=== PATIENT | male | born 1940 | race Caucasian/White ===

== ENCOUNTER 2017-01-15 04:34 | Emergency (ER) | payer MEDICARE, BC ==
[2017-01-15] MEDS ORDERED: NITRO-BID 2% UD PACKETS TOP ONE (04:41)
[2017-01-15] MEDS ORDERED: BABY ASPIRIN 81 MG CHEW PO ONE (04:41)
[2017-01-15] MEDS ORDERED: BUMEX 1 MG IV ONE (04:42)
[2017-01-15] MEDS ORDERED: BABY ASPIRIN 81 MG CHEW ONE (04:52)
[2017-01-15] MEDS ORDERED: BUMEX 1 MG ONE (04:52)
[2017-01-15] MEDS ORDERED: NITRO-BID 2% UD PACKETS ONE (04:52)
--- NOTE | 2017-01-15 05:03 | ERPHSYRPT ---
- History of Present Illness Time Seen by Provider: 01/15/17 04:40 Historian: patient, family (son) Patient Subjective Stated Complaint: PT REPORTS SOB ET CHEST PAIN BEGINNING AT MIDNIGHT-DENIES DIAPHORESIS-STATES THAT HE IS USUALLY SOB BUT IT BECAME WORSE Triage Nursing Assessment: PT FLUSHED WARM ET [id number] ALL QUESTIONS CORRECTLY-LUNGS CLEAR BILATERALLY-PULSE REGULAR IN LEFT RADIAL ARM Physician History: CC: chest pain and short of breath Hx: 76 y/o patient of Dr Keller/Henrique/Tres. He has dialysis , , Sunday. He had rought run and was weak and had to go to [facility] ER. Labs ok so sent home. He awoke tonite at [place] with anterior chest pain and shortness of breath. It persists. No NTG use. He takes ASA. He had prior CABG but has had no chest pain since. No cough or fever. Timing/Duration: today ([place]) Aspirin Treatment Today: 81 mg x 2, provided by ED Allergies/Adverse Reactions: tetracycline Allergy (Severe, Verified 01/15/17 04:45) Hives Influenza Virus Vaccines Allergy (Verified 01/15/17 04:45) Shortness of Breath Home Medications: Aspirin 81 mg PO DAILY 08/21/15 [History] Doxazosin Mesylate [Cardura] 6 mg PO DAILY 08/21/15 [History] Famotidine 20 mg [Pepcid 20 MG] 20 mg PO DAILY 08/21/15 [History] Insulin NPH Human Isophane [Humulin N] 25 unit SQ QAM 08/21/15 [History] Insulin NPH Human Isophane [Humulin N] 30 unit SQ HS 08/21/15 [History] Levothyroxine Sodium 100 Mcg [Synthroid 100 Mcg] 120 mcg PO DAILY 08/21/15 [History] Albuterol Common Canister [Proventil Common Canister] 1 puff IH UD [History] Allopurinol 100 mg [Zyloprim 100 mg] 100 mg PO DAILY 01/15/17 [History] Amlodipine Besylate 10 mg [Norvasc 10 MG] 10 mg PO DAILY 01/15/17 [History] Bumetanide [Bumex] 2 mg PO BID 01/15/17 [History] Cyanocobalamin (Vitamin B-12) [B-12] 1,000 mcg PO DAILY 01/15/17 [History] Gabapentin [Neurontin] 300 mg PO UD 01/15/17 [History] Glimepiride 4 mg [Amaryl 4 mg] 4 mg PO BID 01/15/17 [History] Hx Tetanus, Diphtheria Vaccination/Date Given: No Hx Influenza Vaccination/Date Given: No Hx Pneumococcal Vaccination/Date Given: No Immunizations Up to Date: Yes - Review of Systems Constitutional: Malaise, Weakness, No Fever, No Chills Eyes: No Symptoms Ears, Nose, & Throat: No Symptoms Respiratory: Dyspnea, No Cough Cardiac: Chest Pain Abdominal/Gastrointestinal: No Abdominal Pain, No Nausea, No Vomiting Genitourinary Symptoms: No Symptoms Skin: No Rash Neurological: No Headache All Other Systems: Reviewed and Negative - Past Medical History Pertinent Past Medical History: Yes Neurological History: No Pertinent History ENT History: No Pertinent History Cardiac History: Arrhythmia, Congestive Heart Failure, Coronary Artery Disease, Hypertension, Myocardial Infarction (NV), Peripheral Vascular Disease Respiratory History: CHF Endocrine Medical History: Diabetes Type II GI Medical History: GERD History: Renal Disease Male Reproductive Disorders: Prostate Problems Other Medical History: GOUT - Past Surgical History Past Surgical History: Yes Neuro Surgical History: No Pertinent History Cardiac: CABG Respiratory: No Pertinent History Gastrointestinal: Cholecystectomy Genitourinary: No Pertinent History Musculoskeletal: No Pertinent History Male Surgical History: No Pertinent History - Social History Smoking Status: Never smoker Exposure to second hand smoke: No Drug Use: none Patient Lives Alone: No - Nursing Vital Signs Nursing Vital Signs: Initial Vital Signs Temperature 98.8 F 01/15/17 04:35 Pulse Rate 58 L 01/15/17 04:35 Respiratory Rate 18 01/15/17 04:35 Blood Pressure 131/62 01/15/17 04:35 O2 Sat by Pulse Oximetry 98 01/15/17 04:35 Pain Scale Pain Intensity 6 - Physical Exam General Appearance: alert Eye Exam: PERRL/EOMI Ears, Nose, Throat Exam: moist mucous membranes Neck Exam: normal inspection, non-tender, supple Respiratory Exam: crackles/rales (both bases worse on right) Cardiovascular Exam: regular rate/rhythm, bradycardia (which he report is normal ) Gastrointestinal/Abdomen Exam: soft, No tenderness, No distention Extremity Exam: pedal edema (3+ edema with some redness and venous stasis) Neurologic Exam: alert, oriented x 3, cooperative, sensation nml, No motor deficits Skin Exam: warm, dry SpO2 Interpretation: normal SpO2: 98 Oxygen Delivery: Room Air - Course Nursing assessment & vital signs reviewed: Yes EKG Interpreted by Me: RATE (49), A-fib, Right Bundle Branch Block (new), Other (QTc 434) - Radiology Exams cxr X-ray Interpretation: Reviewed by me (CM, post sternotomy, mild failure) Ordered Tests: Active Orders 24 hr Category Date Time Status Power Tool Repair Technician STAT Care 01/15/17 04:41 Active EKG-ER Only STAT Care 01/15/17 04:41 Active IV Insertion STAT Care 01/15/17 04:41 Active Oxygen-ED Only NASAL CANNULA 2 lpm Care 01/15/17 04:41 Active Pulse Oximetry (ED) STAT Care 01/15/17 04:41 Active CHEST 1 VIEW (PORTABLE) Stat Exams 01/15/17 04:41 Taken CBC W DIFF Stat Lab 01/15/17 04:50 Completed CMP Stat Lab 01/15/17 04:50 Completed TROPONIN Q3H Lab 01/15/17 04:50 Completed TROPONIN Q3H Lab 01/15/17 07:45 Ordered TROPONIN Q3H Lab 01/15/17 10:45 Ordered TROPONIN Q3H Lab 01/15/17 13:45 Ordered TROPONIN Q3H Lab 01/15/17 16:45 Ordered Medication Summary Discontinued Medications Generic Name Dose Route Start Last Admin Trade Name Freq PRN Reason Stop Dose Admin Aspirin 162 mg 01/15/17 04:41 01/15/17 04:57 Baby Aspirin 81 Mg Chew PO 01/15/17 04:42 162 mg STAT ONE Administration Aspirin Confirm 01/15/17 04:52 Baby Aspirin 81 Mg Chew Administered 01/15/17 04:53 Dose 162 mg .ROUTE .STK-MED ONE Bumetanide 1 mg 01/15/17 04:42 01/15/17 04:57 Bumex 1 Mg IV 01/15/17 04:43 1 mg STAT ONE Administration Bumetanide Confirm 01/15/17 04:52 Bumex 1 Mg Administered 01/15/17 04:53 Dose 1 mg .ROUTE .STK-MED ONE Nitroglycerin 1 gm 01/15/17 04:41 01/15/17 04:57 Nitro-Bid 2% Ud Packets TOP 01/15/17 04:42 1 gm STAT ONE Administration Nitroglycerin Confirm 01/15/17 04:52 Nitro-Bid 2% Ud Packets Administered 01/15/17 04:53 Dose 1 gm .ROUTE .STK-MED ONE Lab/Rad Data: Laboratory Result Diagrams 01/15/17 04:50 01/15/17 04:50 Laboratory Results 01/15/17 01/15/17 01/15/17 Range/Units 04:50 04:50 04:50 WBC 6.5 (4.0-10.5) K/mm3 RBC 3.34 L (4.1-5.6) M/mm3 Hgb 10.0 L (12.5-18.0) gm/dl Hct 32.5 L (42-50) % MCV 97.3 (78-100) fl MCH 29.9 (26-32) pg MCHC 30.8 L (32-36) g/dl RDW 16.2 H (11.5-14.0) % Plt Count 113 L (150-450) K/mm3 MPV 12.5 H (6-9.5) fl Gran % 73.9 H (36.0-66.0) % Lymphocytes % 11.0 L (24.0-44.0) % Monocytes % 11.7 (0.0-12.0) % Eosinophils % 2.8 (0.00-5.0) % Basophils % 0.6 (0.0-0.4) % Basophils # 0.04 (0-0.4) Sodium 140 (136-145) mEq/L Potassium 5.2 H (3.5-5.1) mEq/L Chloride 103 (98-107) mEq/L Carbon Dioxide 24.0 (21-32) mEq/L Anion Gap 18.2 H (5-15) MEQ/L BUN 39 H (9-20) mg/dL Creatinine 6.53 H (0.55-1.30) mg/dl Estimated GFR 9 ML/MIN Glucose 201 H (70-110) MG/DL Calcium 8.6 (8.5-10.1) mg/dL Total Bilirubin 0.50 (0.2-1.0) mg/dL AST 17 (15-37) U/L ALT 19 (12-78) U/L Alkaline Phosphatase 219 H (46-116) U/L Troponin I 0.045 (0.000-0.056) ng/ml Serum Total Protein 6.9 (6.4-8.2) gm/dL Albumin 3.4 (3.4-5.0) g/dL - Progress Progress Note: 01/15/17 06:12 Pain is improved. Breathing better. K5.2. Called [facility] transfer line and spoke to Dr titus who accepts trasnfer to [facility]. Pt may need dialysis and needs fluid balance adjusted. Also needs rule out NV. Pt agrees. Counseled pt/family regarding: lab results, diagnosis, need for follow-up, rad results - Departure Time of Disposition: 06:12 Departure Disposition: Transfer ([facility]) Clinical Impression: Chronic renal failure, CHF (congestive heart failure), Chest pain, rule out acute myocardial infarction Condition: Stable Critical Care Time: No Referrals: JUDAH GARRIDO [NON-STAFF PHY W/O PRIVILEGES] -
[2017-01-15 05:23] LABS: BASOPHIL % 0.6 % (0.0-0.4); Eosinophil % 2.8 % (0.00-5.0); Granulocytes % 73.9 % (36.0-66.0); Mean Cell Volume 97.3 fl (78-100); Mean Corpuscular Hemoglobin 29.9 pg (26-32); Mean Platelet Volume 12.5 fl (6-9.5); Monocytes % 11.7 % (0.0-12.0); Platelet Count 113 K/mm3 (150-450); Red Blood Count 3.34 M/mm3 (4.1-5.6); Red Cell Distribution Width 16.2 % (11.5-14.0); White Blood Count 6.5 K/mm3 (4.0-10.5)
[2017-01-15 05:33] LABS: ALBUMIN 3.4 g/dL (3.4-5.0); ANION GAP 18.2 MEQ/L (5-15); BILIRUBIN,TOTAL 0.5 mg/dL (0.2-1.0); Potassium 5.2 mEq/L (3.5-5.1); Total Protein 6.9 gm/dL (6.4-8.2)
[2017-01-15 06:03] VITALS: BP 137/48; PULSE 46
[2017-01-15 06:14] VITALS: O2SAT 98
--- NOTE | 2017-01-15 08:59 | XRAY ---
Indication: Chest pain. Comparison: August 16, 2016. Portable apical lordotic chest less inflated today and slightly degraded by respiration artifact. Stable left base pleural parenchymal opacity, cardiomegaly, and CABG surgery. Bony thorax intact again with mild osteopenia and degenerative changes. No new cardiopulmonary abnormalities.
== END 2017-01-15 07:29 | disposition short-term general hospital (02) ==
LOC: ED 04:34
DX: N18.9 Chronic kidney disease, unspecified (principal); I50.9 Heart failure, unspecified; R07.89 Other chest pain; E11.9 Type 2 diabetes mellitus without complications; I10 Essential (primary) hypertension; I25.10 Atherosclerotic heart disease of native coronary artery without angina pectoris; I25.2 Old myocardial infarction; I73.9 Peripheral vascular disease, unspecified; Z79.4 Long term (current) use of insulin
CPT/HCPCS: 36000; 36415; 71010; 80053; 84484; 85025; 93005; 93041; 96374; 99285; A9270-GY

== ENCOUNTER 2018-05-08 15:50 | Emergency (ER) | payer MEDICARE, BC ==
[2018-05-08 16:14] VITALS: BP 169/84; PULSE 69; O2SAT 96
--- NOTE | 2018-05-08 16:19 | ERPHSYRPT ---
- History of Present Illness Time Seen by Provider: 05/08/18 16:13 Source: patient Exam Limitations: no limitations Physician History: The patient is a 78-year-old male complaining of accidentally striking the top of his head on a sharp piece of angle iron, causing a long and deep laceration to his scalp that has been bleeding significantly. He did not lose consciousness he was not dazed. He does not take blood thinners except for a baby aspirin daily. He is not lightheaded. His past medical history significant for HTN, CHF, gout, DM, high cholesterol, GERD, renal failure, CAD, CABG, dialysis, and hypothyroidism. Timing/Duration: today Quality: other (laceration) Severity: moderate Location: scalp Possible Causes: other (sharp metal) Allergies/Adverse Reactions: tetracycline Allergy (Severe, Verified 01/15/17 04:45) Hives acetaminophen [From Tylenol] Allergy (Verified 05/08/18 16:15) Home Medications: Aspirin 81 mg PO DAILY 08/21/15 [History] Doxazosin Mesylate [Cardura] 6 mg PO DAILY 08/21/15 [History] Famotidine 20 mg [Pepcid 20 MG] 20 mg PO DAILY 08/21/15 [History] Insulin NPH Human Isophane [Humulin N] 25 unit SQ QAM 08/21/15 [History] Insulin NPH Human Isophane [Humulin N] 30 unit SQ HS 08/21/15 [History] Levothyroxine Sodium 100 Mcg [Synthroid 100 Mcg] 120 mcg PO DAILY 08/21/15 [History] Albuterol Common Canister [Proventil Common Canister] 1 puff IH UD [History] Allopurinol 100 mg [Zyloprim 100 mg] 100 mg PO DAILY 01/15/17 [History] Amlodipine Besylate 10 mg [Norvasc 10 MG] 10 mg PO DAILY 01/15/17 [History] Bumetanide [Bumex] 2 mg PO BID 01/15/17 [History] Cyanocobalamin (Vitamin B-12) [B-12] 1,000 mcg PO DAILY 01/15/17 [History] Gabapentin [Neurontin] 300 mg PO UD 01/15/17 [History] Glimepiride 4 mg [Amaryl 4 mg] 4 mg PO BID 01/15/17 [History] Hx Tetanus, Diphtheria Vaccination/Date Given: No Hx Influenza Vaccination/Date Given: No Hx Pneumococcal Vaccination/Date Given: No - Review of Systems Constitutional: No Fever, No Chills Eyes: No Symptoms Ears, Nose, & Throat: No Symptoms Respiratory: No Cough, No Dyspnea Cardiac: No Chest Pain, No Edema, No Syncope Abdominal/Gastrointestinal: No Abdominal Pain, No Nausea, No Vomiting, No Diarrhea Genitourinary Symptoms: No Dysuria Musculoskeletal: No Back Pain, No Neck Pain Skin: Other (laceration) Neurological: No Dizziness, No Focal Weakness, No Sensory Changes Psychological: No Symptoms Endocrine: No Symptoms Hematologic/Lymphatic: No Symptoms Immunological/Allergic: No Symptoms All Other Systems: Reviewed and Negative - Past Medical History Pertinent Past Medical History: Yes Neurological History: No Pertinent History ENT History: No Pertinent History Cardiac History: Arrhythmia, Congestive Heart Failure, Coronary Artery Disease, Hypertension, Myocardial Infarction ([place]), Peripheral Vascular Disease Respiratory History: CHF Endocrine Medical History: Diabetes Type II GI Medical History: GERD History: Renal Disease Male Reproductive Disorders: Prostate Problems Other Medical History: GOUT - Past Surgical History Past Surgical History: Yes Neuro Surgical History: No Pertinent History Cardiac: CABG Respiratory: No Pertinent History Gastrointestinal: Cholecystectomy Genitourinary: No Pertinent History Musculoskeletal: No Pertinent History Male Surgical History: No Pertinent History - Social History Smoking Status: Never smoker Exposure to second hand smoke: No Drug Use: none Patient Lives Alone: No - Physical Exam General Appearance: no apparent distress, alert Eye Exam: PERRL/EOMI, eyes nml inspection Ears, Nose, Throat Exam: normal ENT inspection, pharynx normal, moist mucous membranes Neck Exam: normal inspection, non-tender, supple, full range of motion Respiratory Exam: normal breath sounds, lungs clear, No respiratory distress Cardiovascular Exam: regular rate/rhythm, normal heart sounds Gastrointestinal/Abdomen Exam: soft, mass, No tenderness Rectal Exam: not done Back Exam: normal inspection, normal range of motion, No CVA tenderness, No vertebral tenderness Extremity Exam: normal inspection, normal range of motion Neurologic Exam: alert, oriented x 3, cooperative, normal mood/affect, sensation nml, No motor deficits Skin Exam: laceration (8 cm linear lacertion to vertex of scalp with arterial bleeding source.) SpO2 Interpretation: normal Oxygen Delivery: Room Air - Progress Progress Note: 05/08/18 16:[address] Orozco the surgeon at [facility] who declined the patient. I then spoke with Dr. Waite at [facility] who accepted the patient to the ER at [facility]. - Departure Time of Disposition: 16:23 Departure Disposition: Transfer (transfer to [facility] ER per Dr Waite) Clinical Impression: Laceration of scalp with complication Condition: Stable Critical Care Time: No
[2018-05-08] MEDS ORDERED: Sodium Chloride 0.9% 1000 ML 1,000 ML ONE (16:30)
[2018-05-08] MEDS ORDERED: Sodium Chloride 0.9% 1000 ML 1,000 ML IV SCH (16:30)
[2018-05-08] MEDS ORDERED: Zofran 4 MG/2 ML VIAL IV ONE (16:41)
[2018-05-08] MEDS ORDERED: MORPHINE SULFATE 2 MG INJ IV ONE (16:41)
[2018-05-08] MEDS ORDERED: Zofran 4 MG/2 ML VIAL ONE (16:41)
[2018-05-08] MEDS ORDERED: MORPHINE SULFATE 2 MG INJ ONE (16:41)
== END 2018-05-08 16:52 | disposition short-term general hospital (02) ==
LOC: ED 15:50
DX: S01.01XA Laceration without foreign body of scalp, initial encounter (principal); S09.0XXA Injury of blood vessels of head, not elsewhere classified, initial encounter; W22.8XXA Striking against or struck by other objects, initial encounter; I10 Essential (primary) hypertension; E11.9 Type 2 diabetes mellitus without complications; Z79.4 Long term (current) use of insulin; Z79.899 Other long term (current) drug therapy; Z79.82 Long term (current) use of aspirin
CPT/HCPCS: 36000; 96360; 96374; 96375; 99285; J2270; J2405

== ENCOUNTER 2020-05-22 11:44 | Emergency (ER) | payer MEDICARE, BC ==
--- NOTE | 2020-05-22 11:47 | ERPHSYRPT ---
- History of Present Illness Time Seen by Provider: 05/22/20 11:46 Historian: patient, family Exam Limitations: no limitations Physician History: This is an 80-year-old diabetic obese white male who has a history of renal failure on Sunday dialysis and presents to the emergency department with weakness, near syncope and hematemesis. Patient underwent dialysis this morning but they were unable to remove much fluid off. Patient was very weak and was having difficulty standing. His son brought him to the emergency department and patient was pale and had a single episode of hematemesis (large single blood clot). Patient states that Sunday evening he ate beef and noodles. morning prior to this evaluation he began having some abdominal discomfort in the left side of his abdomen that "tore him up". He also began having diarrhea as well. Patient sees Dr. Joshua, hot stamp operator and Dr. Robertsardiologist both of [facility] in [facility]. Per his son's report, Dr. Castellanos scrap sorter/oncologist out of [facility] are convinced that he has some type of cancer and they have been doing a work-up for this. Patient's primary care physician is Dr. Peacock. Patient uses home oxygen therapy via nasal cannula occasionally. Patient has hypothyroidism, insulin-dependent diabetes, congestive heart failure, coronary artery disease, hypertension, peripheral vascular disease and gastroesophageal reflux disease. He has undergone a CABG procedure and pacemaker placement. Patient denies chest pain at this time. He also denies any abdominal pain. Activities at Onset: none Abdominal Pain Onset Location: [facility] Pain Radiation: no radiation Severity of Pain-Max: mild Severity of Pain-Current: none Modifying Factors: Improves With: vomiting (Hematemesis) Associated Symptoms: diarrhea, loss of appetite, nausea, vomiting, weakness, No chest pain, No fever/chills Previous symptoms: no prior history, recently seen Allergies/Adverse Reactions: tetracycline Allergy (Severe, Verified 01/15/17 04:45) Hives acetaminophen [From Tylenol] Allergy (Verified 05/08/18 16:15) Home Medications: Aspirin 81 mg PO DAILY 08/21/15 [History] Doxazosin Mesylate [Cardura] 4 mg PO DAILY 08/21/15 [History] Famotidine 20 mg [Pepcid 20 MG] 20 mg PO DAILY 08/21/15 [History] Insulin NPH Human Isophane [Humulin N] 25 unit SQ QAM 08/21/15 [History] Insulin NPH Human Isophane [Humulin N] 30 unit SQ HS 08/21/15 [History] Levothyroxine Sodium 100 Mcg [Synthroid 100 Mcg] 125 mcg PO DAILY 08/21/15 [History] Albuterol Common Canister [Proventil Common Canister] 1 puff IH UD PRN 01/15/17 [History] Allopurinol 100 mg [Zyloprim 100 mg] 200 mg PO DAILY 01/15/17 [History] Amlodipine Besylate 10 mg [Norvasc 10 MG] 5 mg PO DAILY 01/15/17 [History] Bumetanide [Bumex] 2 mg PO BID 01/15/17 [History] Cyanocobalamin (Vitamin B-12) [B-12] 1,000 mcg PO DAILY 01/15/17 [History] Atorvastatin Calcium 10 mg PO DAILY 05/08/18 [History] Hx Tetanus, Diphtheria Vaccination/Date Given: No Hx Influenza Vaccination/Date Given: No Hx Pneumococcal Vaccination/Date Given: No Travel Risk - International Travel Have you traveled outside of the country in past 3 weeks: No - Coronavirus Screening Are you exhibiting any of the following symptoms?: No Close contact with a COVID-19 positive Pt in past 14-21 Days: No - Review of Systems Constitutional: Weakness Eyes: No Symptoms Ears, Nose, & Throat: No Symptoms Respiratory: No Symptoms Cardiac: No Symptoms Abdominal/Gastrointestinal: Nausea, Vomiting, Diarrhea Genitourinary Symptoms: No Symptoms Musculoskeletal: No Symptoms Skin: No Symptoms Neurological: No Symptoms Psychological: No Symptoms Endocrine: No Symptoms Hematologic/Lymphatic: Anemia Immunological/Allergic: No Symptoms All Other Systems: Reviewed and Negative - Past Medical History Pertinent Past Medical History: Yes Neurological History: No Pertinent History ENT History: No Pertinent History Cardiac History: Arrhythmia, Congestive Heart Failure, Coronary Artery Disease, Hypertension, Myocardial Infarction (CA), Peripheral Vascular Disease Respiratory History: CHF Endocrine Medical History: Diabetes Type II GI Medical History: GERD History: Renal Disease Male Reproductive Disorders: Prostate Problems Other Medical History: GOUT - Past Surgical History Past Surgical History: Yes Neuro Surgical History: No Pertinent History Cardiac: CABG Respiratory: No Pertinent History Gastrointestinal: Cholecystectomy Genitourinary: No Pertinent History Musculoskeletal: No Pertinent History Male Surgical History: No Pertinent History - Social History Smoking Status: Never smoker Exposure to second hand smoke: No Drug Use: none Patient Lives Alone: No - Nursing Vital Signs Nursing Vital Signs: Initial Vital Signs Pulse Rate 70 05/22/20 11:45 Respiratory Rate 24 05/22/20 11:45 O2 Sat by Pulse Oximetry 90 L 05/22/20 11:45 Pain Scale Pain Intensity 0 - Physical Exam General Appearance: moderate distress, alert, obese Eye Exam: PERRL/EOMI, pale conjunctivae Ears, Nose, Throat Exam: normal ENT inspection, dry mucous membranes Neck Exam: normal inspection, non-tender, supple, full range of motion Respiratory Exam: normal breath sounds, lungs clear, airway intact, No chest tenderness Cardiovascular Exam: regular rate/rhythm, normal heart sounds, normal peripheral pulses Gastrointestinal/Abdomen Exam: soft, normal bowel sounds, No tenderness Rectal Exam: not done Extremity Exam: normal inspection, normal range of motion, pelvis stable Neurologic Exam: alert, oriented x 3, cooperative, turkey boner II-XII nml as tested, other (Generalized weakness) Skin Exam: pale Lymphatic Exam: No adenopathy SpO2 Interpretation: borderline oxygenation O2 Delivery: Room Air - Course Nursing assessment & vital signs reviewed: Yes EKG Interpreted by Me: RATE (70), Other (No acute ischemic changes. It is a ventricular paced rhythm. When compared to EKG dated 01/15/2017, there is a new paced rhythm.) Ordered Tests: Active Orders 24 hr Category Date Time Status EKG-ER Only STAT Care 05/22/20 11:54 Active IV Insertion STAT Care 05/22/20 11:54 Active IV Insertion-2nd Peripheral STAT Care 05/22/20 12:10 Active ABDOMEN AND PELVIS W/0 CONTRAS [CT] Stat Exams 05/22/20 11:55 Ordered CHEST 1 VIEW (PORTABLE) Stat Exams 05/22/20 11:54 Ordered AMYLASE Stat Lab 05/22/20 11:43 Completed CBC W DIFF Stat Lab 05/22/20 11:43 Completed CMP Stat Lab 05/22/20 11:43 Completed LIPASE Stat Lab 05/22/20 11:43 Completed Lactic Acid Stat Lab 05/22/20 11:54 Ordered Lactic Acid Stat Lab 05/22/20 11:56 Completed Manual Differential NC Stat Lab 05/22/20 11:43 Completed PROTIME WITH INR Stat Lab 05/22/20 11:43 Completed TROPONIN Q3H Lab 05/22/20 11:43 Completed TROPONIN Q3H Lab 05/22/20 15:00 Ordered TROPONIN Q3H Lab 05/22/20 18:00 Ordered TROPONIN Q3H Lab 05/22/20 21:00 Ordered TROPONIN Q3H Lab 05/23/20 00:00 Ordered VBG [VENOUS BLOOD GAS] Stat Lab 05/22/20 11:55 Completed Medication Summary Discontinued Medications Generic Name Dose Route Start Last Admin Trade Name Freq PRN Reason Stop Dose Admin Famotidine 40 mg 05/22/20 11:54 05/22/20 12:46 Pepcid 20 Mg Vial IV 05/22/20 11:55 40 mg STAT ONE Administration Famotidine Confirm 05/22/20 12:42 Pepcid 20 Mg Vial Administered 05/22/20 12:43 Dose 40 mg IV .STK-MED ONE Sodium Chloride 1,000 mls @ 999 mls/hr 05/22/20 11:54 05/22/20 14:00 Sodium Chloride 0.9% 1000 Ml IV 05/22/20 12:54 Infused .Q1H1M STA Infusion Sodium Chloride Confirm 05/22/20 12:42 Sodium Chloride 0.9% 1000 Ml Administered 05/22/20 12:43 Dose 1,000 mls @ ud .ROUTE .STK-MED ONE Sodium Chloride Confirm 05/22/20 13:02 Sodium Chloride 0.9% 1000 Ml Administered 05/22/20 13:03 Dose 1,000 mls @ ud .ROUTE .STK-MED ONE Meropenem 1 g/ Sodium Chloride 100 mls @ 200 mls/hr 05/22/20 13:44 05/22/20 14:03 IV 05/22/20 14:13 200 mls/hr STAT ONE Administration Sodium Chloride Confirm 05/22/20 14:02 Sodium Chloride 100ml Mini-Bag Plus Administered 05/22/20 14:03 Dose 100 mls @ ud IV .STK-MED ONE Meropenem Confirm 05/22/20 14:01 Merrem 1 Gm Administered 05/22/20 14:02 Dose 1 g IV .STK-MED ONE Ondansetron HCl 4 mg 05/22/20 11:54 05/22/20 12:46 Zofran 4 Mg/2 Ml Vial IV 05/22/20 11:55 4 mg STAT ONE Administration Ondansetron HCl Confirm 05/22/20 12:42 Zofran 4 Mg/2 Ml Vial Administered 05/22/20 12:43 Dose 4 mg .ROUTE .STK-MED ONE Lab/Rad Data: Laboratory Result Diagrams 05/22/20 11:43 05/22/20 11:43 Laboratory Results 05/22/20 05/22/20 05/22/20 Range/Units 11:56 11:55 11:43 WBC (4.0-10.5) K/mm3 RBC (4.1-5.6) M/mm3 Hgb (12.5-18.0) gm/dl Hct (42-50) % MCV (78-100) fl MCH (26-32) pg MCHC (32-36) g/dl RDW (11.5-14.0) % Plt Count (150-450) K/mm3 MPV (7.5-11.0) fl Segmented Neutrophils (36.-66.) % Lymphocytes (Manual) (24-44) % Monocytes (Manual) (0.0-12.0) % Eosinophils (Manual) (0.00-3.0) % Hypersegmented Polys Hypochromia Toxic Granulation Platelet Estimate (NORMAL) RBC Morphology Polychromasia Poikilocytosis Anisocytosis PT (8.83-12.87) SECONDS INR (0.8-3.0) pO2/FiO2 Ratio 21.0 % VBG pH 7.40 (7.32-7.42) VBG pCO2 at Pat Temp 39 L (42-55) mm/Hg VBG pO2 at Pat Temp 29 (25-40) mm/Hg VBG HCO3 24.2 (22-28) meq/L VBG O2 Sat (Tyrone) 49.8 L (95-100) VBG Base Excess -0.5 (-2.0-2.0) VBG Hemoglobin 5.6 L* VBG Carboxyhemoglobin 5.0 (0.0-6.9) % T HGB POC Potassium 4.1 (3.5-5.1) Sodium (137-145) mmol/L Potassium (3.5-5.1) mmol/L Chloride (98-107) mmol/L Carbon Dioxide (22-30) mmol/L Anion Gap (5-15) MEQ/L BUN (9-20) mg/dL Creatinine (0.66-1.25) mg/dL Estimated GFR ML/MIN Glucose (74-106) mg/dL Lactic Acid 6.0 H (0.4-2.0) Calcium (8.4-10.2) mg/dL Total Bilirubin (0.2-1.3) mg/dL AST (17-59) U/L ALT (0-50) U/L Alkaline Phosphatase (38-126) U/L Troponin I (0.000-0.034) ng/mL Serum Total Protein (6.3-8.2) g/dL Albumin (3.5-5.0) g/dL Amylase (30-110) U/L Lipase (23-300) U/L ABO Group Rh Factor Antibody Screen (NEGATIVE) Crossmatch C (COMPATIBLE) 05/22/20 05/22/20 05/22/20 Range/Units 11:43 11:43 11:43 WBC (4.0-10.5) K/mm3 RBC (4.1-5.6) M/mm3 Hgb (12.5-18.0) gm/dl Hct (42-50) % MCV (78-100) fl MCH (26-32) pg MCHC (32-36) g/dl RDW (11.5-14.0) % Plt Count (150-450) K/mm3 MPV (7.5-11.0) fl Segmented Neutrophils (36.-66.) % Lymphocytes (Manual) (24-44) % Monocytes (Manual) (0.0-12.0) % Eosinophils (Manual) (0.00-3.0) % Hypersegmented Polys Hypochromia Toxic Granulation Platelet Estimate (NORMAL) RBC Morphology Polychromasia Poikilocytosis Anisocytosis PT 15.9 H (8.83-12.87) SECONDS INR 1.40 (0.8-3.0) pO2/FiO2 Ratio % VBG pH (7.32-7.42) VBG pCO2 at Pat Temp (42-55) mm/Hg VBG pO2 at Pat Temp (25-40) mm/Hg VBG HCO3 (22-28) meq/L VBG O2 Sat (Tyrone) (95-100) VBG Base Excess (-2.0-2.0) VBG Hemoglobin VBG Carboxyhemoglobin (0.0-6.9) % T HGB POC Potassium (3.5-5.1) Sodium (137-145) mmol/L Potassium (3.5-5.1) mmol/L Chloride (98-107) mmol/L Carbon Dioxide (22-30) mmol/L Anion Gap (5-15) MEQ/L BUN (9-20) mg/dL Creatinine (0.66-1.25) mg/dL Estimated GFR ML/MIN Glucose (74-106) mg/dL Lactic Acid (0.4-2.0) Calcium (8.4-10.2) mg/dL Total Bilirubin (0.2-1.3) mg/dL AST (17-59) U/L ALT (0-50) U/L Alkaline Phosphatase (38-126) U/L Troponin I 0.060 H* (0.000-0.034) ng/mL Serum Total Protein (6.3-8.2) g/dL Albumin (3.5-5.0) g/dL Amylase (30-110) U/L Lipase (23-300) U/L ABO Group B Rh Factor POSITIVE Antibody Screen NEGATIVE (NEGATIVE) Crossmatch C (COMPATIBLE) 05/22/20 05/22/20 Range/Units 11:43 11:43 WBC 23.4 H (4.0-10.5) K/mm3 RBC 1.83 L* (4.1-5.6) M/mm3 Hgb 5.1 L* (12.5-18.0) gm/dl Hct 18.0 L (42-50) % MCV 98.4 (78-100) fl MCH 27.9 (26-32) pg MCHC 28.3 L (32-36) g/dl RDW 16.1 H (11.5-14.0) % Plt Count 267 (150-450) K/mm3 MPV 10.6 (7.5-11.0) fl Segmented Neutrophils 93 H (36.-66.) % Lymphocytes (Manual) 2 L (24-44) % Monocytes (Manual) 3 (0.0-12.0) % Eosinophils (Manual) 2 (0.00-3.0) % Hypersegmented Polys 2+ Hypochromia 2+ Toxic Granulation 2+ Platelet Estimate NORMAL (NORMAL) RBC Morphology ABNORMAL Polychromasia 1+ Poikilocytosis 1+ Anisocytosis 2+ PT (8.83-12.87) SECONDS INR (0.8-3.0) pO2/FiO2 Ratio % VBG pH (7.32-7.42) VBG pCO2 at Pat Temp (42-55) mm/Hg VBG pO2 at Pat Temp (25-40) mm/Hg VBG HCO3 (22-28) meq/L VBG O2 Sat (Tyrone) (95-100) VBG Base Excess (-2.0-2.0) VBG Hemoglobin VBG Carboxyhemoglobin (0.0-6.9) % T HGB POC Potassium (3.5-5.1) Sodium 133 L (137-145) mmol/L Potassium 4.0 (3.5-5.1) mmol/L Chloride 98 (98-107) mmol/L Carbon Dioxide 22 (22-30) mmol/L Anion Gap 17.0 H (5-15) MEQ/L BUN 60 H (9-20) mg/dL Creatinine 3.37 H (0.66-1.25) mg/dL Estimated GFR 18.8 ML/MIN Glucose 256 H (74-106) mg/dL Lactic Acid (0.4-2.0) Calcium 8.5 (8.4-10.2) mg/dL Total Bilirubin 0.40 (0.2-1.3) mg/dL AST 23 (17-59) U/L ALT 16 (0-50) U/L Alkaline Phosphatase 93 (38-126) U/L Troponin I (0.000-0.034) ng/mL Serum Total Protein 5.8 L (6.3-8.2) g/dL Albumin 3.3 L (3.5-5.0) g/dL Amylase 47 (30-110) U/L Lipase 80 (23-300) U/L ABO Group Rh Factor Antibody Screen (NEGATIVE) Crossmatch (COMPATIBLE) - Progress Progress: improved, re-examined Progress Note: 05/22/20 14:15 We repeated the twelve-lead EKG on 05/22/2020 at 1:23 PM. We had just started the blood transfusion and patient complaint of new chest pain. Repeat twelve- lead EKG shows a ventricular paced rhythm with a heart rate of 70 and no acute ischemic changes. CAT scan of the abdomen pelvis without contrast shows diffuse increased attenuation to the liver that may be due to hemochromatosis, hemosiderosis Wilsons disease or amiodarone toxicity. There is minimal inflammatory fat stranding adjacent to the pancreas. There are bilateral pleural effusions. There is umbilical hernia which contains a knuckle of small bowel without evidence of obstruction. 05/22/20 14:26 Medical decision making: This patient needs hospitalization and blood trans fusion. It is recommended that the patient be transferred to facility where they have cardiology, gastroenterology and nephrology with dialysis available. Patient prefers to be transferred to [facility] in [facility]. I spoke with Dr. Landin (gastroenterology) at that facility. She agrees that the patient will need admission and endoscopy. Dr. Lomas is the hospitalist and we are waiting Dr. Lomas's callback to accept transfer. 05/22/20 14:42 Dr. Lomas, the hospitalist never called back to speak with me directly. However he left a message with the call center stating that he felt, based on what he heard from the call center, the patient might need interventional radiology if the bleeding would not stop. Therefore he did not accept the patient in transfer. I spoke with the patient and he prefers [facility] first and if unavailable will be okay with [facility] transfer. 05/22/20 15:[address] Lantigua who is the emergency department physician on today at [facility] in [facility]. I reviewed the patient history, condition, physical findings, EKG results, laboratory results and CAT scan findings. He accepts the patient in transfer. Counseled pt/family regarding: lab results, diagnosis, rad results - Departure Departure Disposition: Transfer Clinical Impression: GI bleed, Hematemesis, Syncopal episodes, Weakness, Leukocytosis, Elevated troponin Condition: Stable Critical Care Time: Yes Critical Care Time(excluding separately billable procedures): Critical 30-74 mins Referrals: HOMER PEACOCK MD [Primary Care Provider] -
[2020-05-22 11:53] VITALS: PULSE 70
[2020-05-22] MEDS ORDERED: Zofran 4 MG/2 ML VIAL IV ONE (11:54)
[2020-05-22] MEDS ORDERED: Pepcid 20 MG VIAL IV ONE ×2 (11:54→12:42)
[2020-05-22] MEDS ORDERED: Sodium Chloride 0.9% 1000 ML 1,000 ML IV STA (11:54)
[2020-05-22 11:57] LABS: VBG BASE EXCESS -0.5 (-2.0-2.0); VBG HCO3- 24.2 meq/L (22-28); VBG O2 SATURATION 49.8 (95-100); VBG POTASSIUM 4.1 (3.5-5.1); VBG pH 7.4 (7.32-7.42)
[2020-05-22 11:58] LABS: VBG HEMOGLOBIN 5.6
[2020-05-22 12:05] LABS: Mean Cell Volume 98.4 fl (78-100); Mean Corpuscular Hemoglobin 27.9 pg (26-32); Mean Corpuscular Hgb Concent. 28.3 g/dl (32-36); Mean Platelet Volume 10.6 fl (7.5-11.0); Platelet Count 267 K/mm3 (150-450); Red Cell Distribution Width 16.1 % (11.5-14.0); White Blood Count 23.4 K/mm3 (4.0-10.5)
[2020-05-22 12:07] LABS: INR 1.4 (0.8-3.0); PROTIME 15.9 SECONDS (8.83-12.87)
[2020-05-22 12:09] LABS: Red Blood Count 1.83 M/mm3 (4.1-5.6)
[2020-05-22 12:10] LABS: Hemoglobin 5.1 gm/dl (12.5-18.0)
[2020-05-22 12:12] LABS: ALBUMIN 3.3 g/dL (3.5-5.0); BILIRUBIN,TOTAL 0.4 mg/dL (0.2-1.3); Calcium 8.5 mg/dL (8.4-10.2); Creatinine 1 3.37 mg/dL (0.66-1.25); EST GLOMERULAR FILTRATION RATE 18.8 ML/MIN; Total Protein 5.8 g/dL (6.3-8.2)
[2020-05-22 12:29] LABS: ANISOCYTOSIS 2+; Eosinophil 2 % (0.00-3.0); Hypersegmented Polys 2+; Hypochromia 2+; Lymphocytes 2 % (24-44); Monocyte 3 % (0.0-12.0); Neutrophils 93 % (36.-66.); Platelet Estimate NORMAL (NORMAL); Poikilocytosis 1+; Polychromasia 1+; Total Cells Counted 100; Toxic Granulation 2+
[2020-05-22] MEDS ORDERED: Sodium Chloride 0.9% 1000 ML 1,000 ML ONE ×2 (12:42→13:02)
[2020-05-22] MEDS ORDERED: Zofran 4 MG/2 ML VIAL ONE (12:42)
[2020-05-22 13:00] LABS: ABO TYPING B; Antibody Screen NEGATIVE (NEGATIVE); RH TYPING POSITIVE
[2020-05-22 13:14] LABS: CROSS MATCH (PRBC) C (COMPATIBLE)
[2020-05-22] MEDS ORDERED: Merrem 1 GM 1 G in Sodium Chloride 100ML MINI-BAG PLUS 100 ML IV ONE (13:44)
[2020-05-22] MEDS ORDERED: Merrem 1 GM IV ONE (14:01)
[2020-05-22] MEDS ORDERED: Sodium Chloride 100ML MINI-BAG PLUS 100 ML IV ONE (14:02)
[2020-05-22 15:57] VITALS: BP 120/44; O2SAT 98
--- NOTE | 2020-05-22 20:07 | XRAY ---
Indication: Abdomen pain. Nausea and vomiting. Multiple contiguous axial images obtained through the abdomen and pelvis without contrast as ordered. Comparison: August 14, 2019. Lung bases again demonstrates cardiomegaly with mild left effusion and moderate right effusion and bilateral compressive atelectasis concerning for cardiac decompensation versus fluid overload. Noncontrasted stomach and bowel loops remain nonobstructed. Normal appendix. Stable scattered colonic diverticulosis without diverticulitis. No free fluid/air. There are again a few bilateral renal calculi with new nonobstructing 5 mm right UPJ calculus. No perinephric fluid. Liver again appears cirrhotic. Stable cholecystectomy clips and enlarged prostate gland. Remaining liver, pancreas, spleen, adrenal glands, kidneys, ureters, and bladder appear unremarkable for noncontrast exam. There remains diffuse scattered vascular calcifications without AAA. Osseous structures intact again with osteopenia and mild/moderate multilevel degenerative spondylosis. Stable small bilateral fatty inguinal hernias. Impression: 1. There remains multiple bilateral renal microcalculi with new nonobstructing 5 mm right UPJ calculus. 2. Again cirrhotic appearing liver, colonic diverticulosis, scattered arteriosclerotic calcifications, enlarged prostate gland, small bilateral fatty inguinal hernias, and chronic bony findings. 3. Continued cardiomegaly with bilateral effusions. Rule out cardiac decompensation versus fluid overload. Comment: Preliminary interpretation was made by [facility]. No critical discrepancy.
--- NOTE | 2020-05-22 20:12 | XRAY ---
Indication: Abdomen pain. Nausea and vomiting. Comparison: May 14, 2020. Portable chest unchanged again demonstrating cardiomegaly and moderate bibasilar effusions with compressive atelectasis favoring cardiac decompensation versus fluid overload. Again superimposed pneumonia not completely excluded. Stable incidental cardiac valve replacement surgery, CABG, and left dual-lead pacemaker.
== END 2020-05-22 15:55 | disposition short-term general hospital (02) ==
LOC: ED 11:44
DX: K92.2 Gastrointestinal hemorrhage, unspecified (principal); K92.0 Hematemesis; R55 Syncope and collapse; R53.83 Other fatigue; D72.829 Elevated white blood cell count, unspecified; R77.8 Other specified abnormalities of plasma proteins; N18.9 Chronic kidney disease, unspecified; E03.9 Hypothyroidism, unspecified; E11.9 Type 2 diabetes mellitus without complications; I50.9 Heart failure, unspecified; I25.10 Atherosclerotic heart disease of native coronary artery without angina pectoris; I10 Essential (primary) hypertension; I73.9 Peripheral vascular disease, unspecified; K21.9 Gastro-esophageal reflux disease without esophagitis; Z98.61 Coronary angioplasty status; Z95.1 Presence of aortocoronary bypass graft; R10.12 Left upper quadrant pain; R11.10 Vomiting, unspecified; R19.7 Diarrhea, unspecified; R11.2 Nausea with vomiting, unspecified; Z79.899 Other long term (current) drug therapy; Z79.4 Long term (current) use of insulin
CPT/HCPCS: 36000; 36415; 36430; 71045; 74176; 80053; 82150; 82805; 83605; 83690; 84484; 85025; 85610; 86850; 86900; 86901; 86922; 93005; 96360; 96365; 96374; 96375; 99285; 99291; P9016; J2405